=== PATIENT | female | born 1970 | race Two or more races ===

== ENCOUNTER 2016-12-02 13:53 | Emergency (ER) | payer MEDICAID ==
[2016-12-02] MEDS ORDERED: ONDANSETRON 4 MG ODT TAB ONE (14:44)
[2016-12-02] MEDS ORDERED: IBUPROFEN 800 MG TABLET ONE (14:44)
[2016-12-02 14:45] LABS: URINE APPEARANCE HAZY; URINE BILIRUBIN NEGATIVE (NEGATIVE); URINE BLOOD 3+ (NEGATIVE); URINE COLOR YELLOW; URINE GLUCOSE (UA) NEGATIVE (NEGATIVE); URINE LEUKOCYTE ESTERASE NEGATIVE (NEGATIVE); URINE NITRITE NEGATIVE (NEGATIVE); URINE PROTEIN NEGATIVE (NEGATIVE); URINE UROBILINOGEN NORMAL (0-1 mg/dl)
[2016-12-02 14:54] LABS: URINE BACTERIA RARE; URINE WBC 0-1 /hpf
--- NOTE | 2016-12-02 15:41 | RAD ---
History: Cough for 3 days. Comparison: None. Technique: 2 views Findings: The soft tissue and bony structures are appropriate. The heart size is within expected. There is mild bilateral interstitial prominence suggested which may reflect findings of pulmonary edema or atypical infection. No gross consolidation, effusion or pneumothorax is observed. The hilar and mediastinal structures are intact. Impression: 1. Mild bilateral interstitial prominence with considerations including findings of pulmonary edema versus atypical infection. No gross consolidation is observed.
== END 2016-12-02 16:04 | disposition home or self-care (01) ==
LOC: ED 13:53
DX: B34.9 Viral infection, unspecified (principal); M79.1 Myalgia; R05 Cough; R50.9 Fever, unspecified; R31.9 Hematuria, unspecified
CPT/HCPCS: 81001; 71020; 99283 ×2; A9270 ×2

== ENCOUNTER 2016-12-03 18:54 | Emergency (ER) | payer MEDICAID ==
[2016-12-03] MEDS ORDERED: LACTATED RINGERS 1,000 ML ONE (19:37)
[2016-12-03 20:00] LABS: BASO % 0.2 % (0.2-1.0); HEMATOCRIT 30.3 % (37.0-47.0); IMM NEUT # 0.7 K/mm3 (0-0.2); IMM NEUT% 3.2 % (0-1); LYMPH # 1.1 (1.0-4.8); LYMPH % 4.8 % (15-45); MEAN CELL VOLUME 63.9 fl (81.0-99.0); MEAN CORPUSCULAR HGB CONC 29.7 g/dl (33.0-37.0); MONO # 1.5 (0.0-0.8); MONO % 6.5 % (4-12); NEUT % 85.3 % (43-75); PLATELET COUNT 218 K/mm3 (130-400)
[2016-12-03 20:06] LABS: ALB/GLOB RATIO 0.9 (>1.0); ALBUMIN 3.7 gm/dL (3.5-5.7); CALCIUM 8.4 mg/dL (8.6-10.3)
--- NOTE | 2016-12-03 20:25 | RAD ---
CHEST 2 VIEWS HISTORY: Cough and fever. Frontal and lateral chest radiographs dated 12/03/1969. COMPARISON: 12/02/2016. FINDINGS: FOCAL AIRSPACE OPACITY: Interval development of perihilar infiltrates extending to the right lung base. PLEURAL EFFUSION: None. CARDIOMEDIASTINAL SILHOUETTE: Nonenlarged. PNEUMOTHORAX: None identified. OSSEOUS STRUCTURES: No grossly destructive lesions. IMPRESSION: Interval development of multifocal airspace opacity in the perihilar and right basal regions compatible with multifocal pneumonia. Follow-up imaging recommended.
[2016-12-03] MEDS ORDERED: ALBUTEROL/IPRATROPIUM 2.5/0.5 MG 3 ML/EACH DOSE ONE (20:37)
[2016-12-03 21:16] LABS: BAND 6 % (0-10); BASOPHIL 0 % (0-1); EOSINOPHIL 0 % (1-3); LYMPHOCYTE 4 % (15-45); MONOCYTE 1 % (4-12); NEUTROPHILS 89 % (43-75); TOTAL CELLS COUNTED 100
[2016-12-03 21:17] LABS: ANISOCYTOSIS 1+; PLATELET ESTIMATE NORMAL (NORMAL)
== END 2016-12-03 22:02 | disposition home or self-care (01) ==
LOC: ED 18:54
DX: J18.9 Pneumonia, unspecified organism (principal); E66.9 Obesity, unspecified; R53.83 Other fatigue
CPT/HCPCS: 83605; 83880; 85025; 87040; 80053; 84484; 71020; 87804; 94640; 99284; 96361; 96365; 93005; 99283; J7120